=== PATIENT | male | born 1995 ===

== ENCOUNTER 2018-04-08 11:54 | Emergency (ER) | payer BC ==
[2018-04-08 11:56] VITALS: BMI 24.8
[2018-04-08 11:58] VITALS: RESP 18
[2018-04-08 12:44] LABS: URINE BILIRUBIN NEGATIVE (NEGATIVE); URINE BLOOD NEGATIVE (NEGATIVE); URINE CLARITY Clear (Clear); URINE COLOR Yellow (YELLOW); URINE GLUCOSE (UA) NORMAL (Normal); URINE LEUKOCYTE ESTERASE NEG Leu/uL (Negative); URINE PROTEIN NEGATIVE (NEGATIVE); URINE UROBILINOGEN NORMAL mg/dL (0.2-1.0)
--- NOTE | 2018-04-08 14:17 | US ---
HISTORY: Right testicular pain TECHNIQUE: Realtime sonography through the scrotum with color and doppler flow. COMPARISON: None Available. FINDINGS: RIGHT TESTICLE: Measures 4.3 x 2.3 x 3.2 cm. Normal echotexture and flow. RIGHT EPIDIDYMIS: Epididymal head measures 1.8 x 0.9 x 1.6 cm. There is a 1.0 x 0.6 x 1.9 cm cyst in the head of the epididymis. The remaining epididymis is grossly normal in appearance with normal flow. LEFT TESTICLE: Measures 4.1 x 2.5 x 2.5 cm. Normal echotexture and flow. LEFT EPIDIDYMIS: Epididymal head measures 2.0 x 0.9 x 1.1 cm. There is a 0.3 x 0.2 x 0.3 cm simple cyst in the head of the epididymis. The remaining epididymis is grossly normal in appearance with normal flow. HYDROCELE: None. VARICOCELE: None. OTHER FINDINGS: None. IMPRESSION: Solitary simple cyst in the head of both epididymis, the largest on the right measures 1.9 cm. No evidence for testicular mass, torsion or epididymo-orchitis.
--- NOTE | 2018-04-08 14:45 | C.PDOC ---
History Of Present Illness 22-year-old male presents to the ED for evaluation of right-sided groin and testicular pain which began this morning. Patient notes he only feels pain when moving around or with lifting heavy objects. Patient denies fever, chills, abdominal pain, nausea, vomiting, diarrhea, dysuria, penile discharge or direct injury/trauma to the area. Time Seen by Provider: 04/08/18 12:01 Chief Complaint (Nursing): Groin Pain History Per: Patient History/Exam Limitations: no limitations Onset/Duration Of Symptoms: Hrs Current Symptoms Are (Timing): Still Present Severity: Mild Quality Of Discomfort: "Pain" Associated Symptoms: denies: Fever, Chills, Nausea, Vomiting, Diarrhea, Urinary Symptoms Additional History Per: Patient Past Medical History Reviewed: Historical Data, Nursing Documentation, Vital Signs Vital Signs: Last Vital Signs Temp 98 F 04/08/18 15:07 Pulse 77 04/08/18 15:07 Resp 18 04/08/18 15:07 BP 122/80 04/08/18 15:07 Pulse Ox 96 04/08/18 15:07 - Medical History PMH: No Chronic Diseases Surgical History: No Surg Hx Family History: States: No Known Family Hx - Social History Hx Alcohol Use: No Hx Substance Use: Yes - Immunization History Hx Tetanus Toxoid Vaccination: No Hx Influenza Vaccination: No Hx Pneumococcal Vaccination: No Review Of Systems Constitutional: Negative for: Fever, Chills Gastrointestinal: Negative for: Nausea, Vomiting, Abdominal Pain, Diarrhea Genitourinary: Positive for: Other (right groin and testicular pain ). Negative for: Dysuria, Hematuria, Penile Discharge Skin: Negative for: Rash Physical Exam - Physical Exam Appears: Well, Non-toxic, No Acute Distress Skin: Normal Color, Warm, Dry Eye(s): bilateral: Normal Inspection Oral Mucosa: Moist Neck: Supple Cardiovascular: Rhythm Regular Respiratory: Normal Breath Sounds, No Rales, No Rhonchi, No Wheezing Gastrointestinal/Abdominal: Normal Exam, Bowel Sounds, Soft, No Tenderness, No Guarding, No Rebound Male Genital: Normal Inspection, No Testicular Tenderness, No Testicular Swelling, No Inguinal Tenderness, No Inguinal Swelling, No Scrotal Swelling, No Other (no palpable hernia, erythema or lesions) Extremity: Normal ROM Neurological/Psych: Oriented x3 ED Course And Treatment O2 Sat by Pulse Oximetry: 100 (on RA) Pulse Ox Interpretation: Normal - CT Scan/US Testicular ultrasound Other Rad Studies (CT/US): Interpreted By Me, Read By Radiologist, Radiology Report Reviewed CT/US Interpretation: HISTORY: Right testicular pain. TECHNIQUE: Realtime sonography through the scrotum with color and doppler flow. COMPARISON: None Available. FINDINGS: RIGHT TESTICLE: Measures 4.3 x 2.3 x 3.2 cm. Normal echotexture and flow. RIGHT EPIDIDYMIS: Epididymal head measures 1.8 x 0.9 x 1.6 cm. There is a 1.0 x 0.6 x 1.9 cm cyst in the head of the epididymis. The remaining epididymis is grossly normal in appearance with normal flow. LEFT TESTICLE: Measures 4.1 x 2.5 x 2.5 cm. Normal echotexture and flow. LEFT EPIDIDYMIS: Epididymal head measures 2.0 x 0.9 x 1.1 cm. There is a 0.3 x 0.2 x 0.3 cm simple cyst in the head of the epididymis. The remaining epididymis is grossly normal in appearance with normal flow. HYDROCELE: None. VARICOCELE : None. OTHER FINDINGS: None. IMPRESSION: Solitary simple cyst in the head of both epididymis, the largest on the right measures 1.9 cm. No evidence for testicular mass, torsion or epididymo-orchitis. Progress Note: UA and testicular ultrasound ordered and reviewed. Patient did not want any pain medication. Reevaluation Time: 14:50 Reassessment Condition: Improved (Patient reassessed, is resting comfortably and denies current pain. UA and US unremarkable except for small testicular cysts. Patient instructed to follow up with urology within 1 week, and understands he should to ED if his symptoms worsen.) Disposition Counseled Patient/Family Regarding: Studies Performed, Diagnosis, Need For Followup, Rx Given - Disposition Referrals: Wesley Ravi MD [Staff Provider] - [facility] [Outside] Disposition: HOME/ ROUTINE Disposition Time: 14:50 Condition: STABLE Additional Instructions: FOLLOW UP WITH UROLOGIST WITHIN 1 WEEK IF SYMPTOMS PERSIST/RETURN RETURN TO EMERGENCY ROOM IF SYMPTOMS WORSEN SEGUIMIENTO CON UROLOGIST DENTRO DE 1 SEMANA SI LOS SNTOMAS PERSISTIAN / REGRESA REGRESE AL LADARIUS DE EMERGENCIA SI LOS SNTOMAS EMPEORAN Prescriptions: Naproxen 375 mg PO BID PRN #20 tablet PRN Reason: pain Forms: [facility] (Chinese), General Discharge Instructions Print Language: PORTUGUESE - POA Present On Arrival: None - Clinical Impression Clinical Impression: Right testicular pain, Epididymal cyst - Scribe Statement The provider has reviewed the documentation as recorded by the Scribe (Clara Florez) Provider Attestation: All medical record entries made by the Scribe were at my direction and personally dictated by me. I have reviewed the chart and agree that the record accurately reflects my personal performance of the history, physical exam, medical decision making, and the department course for this patient. I have also personally directed, reviewed, and agree with the discharge instructions and disposition.
[2018-04-08 15:14] VITALS: BP 122/80; PULSE 77; TEMP 98
[2018-04-08 16:30] VITALS: O2SAT 100
== END 2018-04-08 15:13 | disposition home or self-care (01) ==
LOC: C.ER 11:54
DX: N50.3 Cyst of epididymis (principal); N50.811 Right testicular pain